=== PATIENT | female | born 1960 | race Two or more races ===

== ENCOUNTER 2018-04-19 09:39 | Outpatient (CLI) | payer OTHER ==
[~2018-04-19 09:39] MED LIST: COZAAR50 MG; TAMOXIFEN CITRA20 MG; ZYRTEC10 M3 PO
== END 2018-04-19 09:45 | disposition home or self-care (01) ==
LOC: SONOGRAMA 09:39
DX: R22.31 Localized swelling, mass and lump, right upper limb (principal); M79.621 Pain in right upper arm; Z85.3 Personal history of malignant neoplasm of breast

== ENCOUNTER 2021-05-12 08:00 | Outpatient (CLI) | payer OTHER | END 2021-05-12 08:30 | disposition home or self-care (01) | LOC: PPH VACUNA 08:00 | DX: Z23 Encounter for immunization (principal) ==

== ENCOUNTER 2021-10-19 07:27 | Outpatient (CLI) | payer OTHER | END 2021-10-19 07:32 | disposition home or self-care (01) | LOC: NUCLEAR 07:27 | PROVIDERS: ATTEND Internal Medicine Gastroenterology | DX: R10.84 Generalized abdominal pain (principal); R93.5 Abnormal findings on diagnostic imaging of other abdominal regions, including retroperitoneum | CPT/HCPCS: 78215; A9541 ==

== ENCOUNTER 2021-12-23 08:00 | Outpatient (CLI) | payer OTHER | END 2021-12-23 08:30 | disposition home or self-care (01) | LOC: PPH VACUNA 08:00 | PROVIDERS: ATTEND Emergency Medicine Pediatric Emergency Medicine | DX: Z23 Encounter for immunization (principal) ==